=== PATIENT | male | born 2000 | race Two or more races ===

== ENCOUNTER → 2022-01-09 11:14 | Outpatient (BNVA) | payer OTHER, SELFPAY | PROVIDERS: Visit Provider Nurse Practitioner Family | DX: G43.109 Migraine with aura, not intractable, without status migrainosus (principal); R11.2 Nausea with vomiting, unspecified | CPT/HCPCS: 99202 ==

== ENCOUNTER → 2022-04-10 13:57 | Outpatient (BNVA) | payer OTHER, SELFPAY | PROVIDERS: Visit Provider Nurse Practitioner Family | DX: G43.109 Migraine with aura, not intractable, without status migrainosus (principal); R11.2 Nausea with vomiting, unspecified | CPT/HCPCS: 99212 ==

== ENCOUNTER 2023-01-17 08:25 | Outpatient (AMB) | payer OTHER, SELFPAY ==
--- NOTE | 2023-01-17 08:16 | MHC.OFFVIS ---
Intake Vital Signs 01/17/23 08:21 Weight 150 lb 2 oz BP 102/70 Blood Pressure Location Rt brachial Position Sitting Pulse 72 Pulse Source Pulse Oximeter Pulse Oximetry (%) 97 Oxygen Delivery Method Room Air Intake Visit Reasons: 4m follow up-Confirmed Intake Note: F/U migraines Gyroscope Technician Required: No Allergies No Known Allergies Allergy (Verified 01/17/23 08:19) Medication List - Last Reconciled 01/17/23 by SERA Morris fluticasone propionate 50 mcg/actuation 1 spray intranasal BID magnesium oxide 400 mg PO BEDTIME 30 days metoclopramide HCl 10 mg PO QID naproxen 500 mg PO Q12H PRN 30 days ondansetron 4 mg PO QID PRN 30 days riboflavin (vitamin B2) 400 mg PO DAILY 30 days rizatriptan 5 - 10 mg (0.5 - 1 x 10 mg) PO Q2H PRN 21 days HPI HPI Comments History of Present Illness Details 22-yr-old male presents for f/u visit. Pt denies any significant interval medical changes. Pt reports that 2 months ago, he had an ER eval for a severe migraine attack. He notes he had had a mild migraine for 3-4 before , which has was treating with Tylenol, and then on the 4th-or5th day, the migraine became severe w/ repeated N/V. He went to the ER, was given a migraine cocktail. He notes that he had lost his Rizatriptan, so was not able to take it at that time. He has had 1 migraine attack a/w aura and N/V in the past month- sometimes needs to miss/leave work. He has not been taking his Mag and B2- ran out He is still out of his Rizatriptan- which is usually effective w/o side effects. [facility] Medical History JASS (iron deficiency anemia) Pectus excavatum Surgical History History of testicular surgery Family History Mother Obesity Migraine Hepatitis C Psoriasis Family/Other No problems noted. Father High blood pressure Social History (Updated 01/17/23 @ 08:21 by Carla Galvez CMA) Alcohol intake: never Patient Tobacco Use Status: Never used Tobacco Review of Systems Const All systems reviewed & are unremarkable except as noted in HPI and below Physical Exam Vital Signs: Last Vital Signs Pulse 72 01/17/23 08:21 BP 102/70 01/17/23 08:21 Pulse Ox 97 01/17/23 08:21 Oxygen Delivery Method Room Air 01/17/23 08:21 Const General: cooperative and no acute distress Orientation/consciousness: patient oriented x3 HEENT Head: Yes normocephalic Resp Effort & Inspection: normal respiratory effort and able to speak in complete sentences Neuro General: patient oriented x3, gait normal and CN's II-XI intact bilaterally Cognition (Neuro): normal cognition Motor exam (neuro): 5/5 motor strength present throughout Psych Appearance: grossly normal Mental Status: mental status grossly normal Speech and movement: Normal speech and movement present Affect: normal affect Attitude: cooperative Thought process: Normal thought process present Thought content: Normal thought content present Insight: Good insight present (Psych) Judgement: Good judgement present (Psych) Assessment & Plan Assessment & Plan (1) Migraine with aura: Code(s): G43.109 - Migraine with aura, not intractable, without status migrainosus (2) Nausea and vomiting: Code(s): R11.2 - Nausea with vomiting, unspecified Plan For acute headache treatment: Continue Rizatriptan 5-10mg at onset of migraine- may repeat in 2hrs. May adjunct with Naproxen 500mg po q 12 hrs prn. Ondansetron 4mg q 6 hrs prn N/V Hold Reglan order- was given by the ER. Previous acute migraine trials: Sumatriptan- caused chest heaviness. ? For headache prevention treatment: Riboflavin 400mg qam Magnesium 400mg qhs. Medications: Refilled magnesium oxide may hold for loose stools 400 mg PO BEDTIME 30 tabs 6RF 30 days ondansetron 4 mg PO QID PRN 20 tabs 2RF nausea and vomiting 30 days riboflavin (vitamin B2) 400 mg PO DAILY 30 tabs 6RF 30 days rizatriptan max 2 tabs per day or 4 tabs per week 5 - 10 mg (0.5 - 1 x 10 mg) PO Q2H PRN 12 tabs 3RF migraine headache 21 days naproxen 500 mg PO Q12H PRN 30 tabs 3RF migraine headache 30 days Coding Level of Care Code Est Pt Level 4 (64367) Diagnoses Migraine with aura G43.109 Nausea and vomiting R11.2
[2023-01-17 08:21] VITALS: BP 102/70; PULSE 72; O2SAT 97
== END 2023-01-17 08:53 | disposition home or self-care (01) ==
LOC: HO.HSMS 08:25
PROVIDERS: Visit Provider Nurse Practitioner Family
DX: G43.109 Migraine with aura, not intractable, without status migrainosus (principal); R11.2 Nausea with vomiting, unspecified
CPT/HCPCS: 99214

== ENCOUNTER → 2023-01-17 08:25 | Outpatient (BNVA) | payer OTHER, SELFPAY | PROVIDERS: Visit Provider Nurse Practitioner Family | DX: G43.109 Migraine with aura, not intractable, without status migrainosus (principal); R11.2 Nausea with vomiting, unspecified | CPT/HCPCS: 99212 ==

== ENCOUNTER 2023-09-22 09:17 | Outpatient (REF) | payer OTHER, SELFPAY ==
[2023-09-22 11:41] LABS: MANUAL DIFF FLAG NO
[2023-09-22 11:56] LABS: Basophils Percent Auto 0.5 % (0-2); Eosinophils Absolute Auto 0.2 X10*3/uL (0.0-0.4); Eosinophils Percent Auto 2.9 % (0-4); Hematocrit 42.7 % (42.0-52.0); Hemoglobin 14.8 g/dl (14.0-18.0); Imm Gran Abs Auto 0.03 X10*3/uL (0.00-0.03); Imm Gran Pct Auto 0.5 % (0.0-0.4); Lymphocytes Absolute Auto 1.8 X10*3/uL (1.2-4.9); Lymphocytes Percent Auto 31.2 % (20-40); Mean Corpuscular HGB Conc 34.7 g/dl (31.0-36.0); Mean Corpuscular Hemoglobin 29.5 pg (27.0-33.0); Mean Corpuscular Volume 85.2 fL (80.0-98.0); Mean Platelet Volume 10.5 fL (9.4-12.4); Monocytes Absolute Auto 0.5 X10*3/uL (0.1-1.2); Monocytes Percent Auto 8.3 % (2-11); Neutrophils Absolute Auto 3.3 x10*3/uL (2.0-8.3); Neutrophils Percent Auto 56.6 % (45-73); Platelet Count 235 X10*3/uL (160-400); Red Blood Count 5.01 X10*6/uL (4.60-5.80); Red Cell Distribution Width 11.9 % (11.0-16.0); White Blood Count 5.8 X10*3/uL (4.8-10.8)
[2023-09-22 12:07] LABS: Estimated Average Glucose 94 mg/dL; Hemoglobin A1c % 4.9 % (<6.0)
[2023-09-22 12:21] LABS: Anion Gap 11 (12-20); Blood Urea Nitrogen 10 mg/dL (9-16); Calcium 9.1 mg/dL (8.4-10.2); Carbon Dioxide 26 mmol/L (22-29); Chloride 107 mmol/L (96-108); Estimated Glomerular Filt Rate > 60; Glucose Random 86 mg/dL (60-115); Lactate Dehydrogenase 265 U/L (118-273); Potassium 3.9 mmol/L (3.3-5.1); Sodium 140 mmol/L (135-145)
[2023-09-22 12:37] LABS: Rheumatoid Factor < 13.0 IU/mL (<15.0)
[2023-09-22 12:54] LABS: Erythrocyte Sedimentation Rate 3 MM/HR (0-15)
[2023-09-22 12:58] LABS: Folate 7.8 ng/mL (> or = 4.0); Vitamin B12 323 pg/mL (200-900)
[2023-10-02 12:19] LABS: Anti Nuclear Antibody Screen NEGATIVE (NEGATIVE)
== END 2023-09-22 09:18 | disposition home or self-care (01) ==
LOC: HO.HMGCLDS 09:17
PROVIDERS: Visit Provider Nurse Practitioner Family
DX: D72.829 Elevated white blood cell count, unspecified (principal); R51.9 Headache, unspecified; R41.82 Altered mental status, unspecified
CPT/HCPCS: 36415; 80048; 82607; 82746; 83036; 83615; 85025; 85652; 86038; 86431

== ENCOUNTER 2023-10-28 13:08 | Outpatient (REF) | payer OTHER, SELFPAY ==
--- NOTE | 2023-10-28 13:12 | EEG_ITS ---
FINDINGS: The waking background activity consists of a 9 hertz posterior alpha frequency that is seen symmetrically and attenuates well with eye opening while low voltage fast frequencies predominate anteriorly. Photic stimulation and hyperventilation are without activation. No focal, lateralizing, or paroxysmal discharges are seen. IMPRESSION: This waking EEG is within normal limits. MD DAVID Rodríguez/KERRY / [id number]
== END 2023-10-28 13:09 | disposition home or self-care (01) ==
LOC: HO.NEURO 13:08
PROVIDERS: Visit Provider Nurse Practitioner Family
DX: G43.109 Migraine with aura, not intractable, without status migrainosus (principal); R11.2 Nausea with vomiting, unspecified; R41.82 Altered mental status, unspecified
CPT/HCPCS: 95816

== ENCOUNTER 2023-11-10 14:59 | Outpatient (REF) | payer OTHER, SELFPAY ==
--- NOTE | ~2023-11-10 | MR_ITS ---
EXAMINATION: MR BRAIN WITHOUT AND WITH CONTRAST CLINICAL INFORMATION: Altered mental status. COMPARISON: None available. TECHNIQUE: MRI of the brain was obtained using routine sequences without and following the administration of 7 mL of Gadavist intravenous contrast. FINDINGS: No focal restricted diffusion is demonstrated to suggest acute or subacute cerebral ischemia. No evidence of acute or chronic hemorrhagic products on heme-sensitive imaging. Few nonspecific, nonenhancing T2 FLAIR hyperintensities in the deep white matter of the bilateral frontal lobes. No additional parenchymal signal abnormalities. The ventricles are normal in morphology and size. No abnormal mass effect. No midline shift. Normal appearance of the pituitary gland. Normal positioning of the cerebellar tonsils. Normal arterial and venous vascular flow voids are present. No abnormal contrast enhancement. Normal, homogeneous marrow signal. Mild mucosal thickening of the paranasal sinuses. Mild rightward nasal septal deviation. No signal abnormalities within the mastoids. MR/MR head/brain wo/w con IMPRESSION: 1. No acute intracranial abnormalities. No abnormal intracranial enhancement. 2. Minimal nonspecific white matter changes.
[2023-11-10] MEDS: gadobutroL 7.5 ML VIAL IVPUSH (15:55)
== END 2023-11-10 15:00 | disposition home or self-care (01) ==
LOC: HO.MRI 14:59
PROVIDERS: Visit Provider Nurse Practitioner Family
DX: R41.82 Altered mental status, unspecified (principal); R51.9 Headache, unspecified; R11.2 Nausea with vomiting, unspecified
CPT/HCPCS: 70553; A9585

== ENCOUNTER 2024-01-30 14:07 | Outpatient (AMB) | payer OTHER, SELFPAY ==
--- NOTE | 2024-01-30 14:14 | MHC.OFFVIS ---
Vital Signs 01/30/24 14:16 Height 5 ft 6 in Weight 162 lb BMI 26.1 BP 118/82 Blood Pressure Location Rt brachial Position Sitting Intake Visit Reasons: f/u for Migraines Intake Note: Patient presents for migraines. Patient still getting headaches and a lot of intensity. Allergies No Known Allergies Allergy (Verified 01/30/24 14:19) HPI Comments Details: 23 y/o male f/u for h/o AMS/ Migraine with Aura and Vomiting. Pt is accompanied by his mother. Since the last visit, pt notified the office that he had a [facility] ER eval for an episode of severe migraine w/ his typical aura w/ pronounced nausea and vomiting which culminated in pt losing consciousness. His roommate brought him to the ER, while in the ER, pt continued to ahve headcahe, nausea, jawning, , jaw opening, eyes rolling back- described per ER note as pt will clench eyes close or roll eyes back when any attempts made (volitional) . Work-up was unremarkable. WBC- 13- slightly elevated Lactate 4 Labs otherwise WNL. Tox screen negative. CT Angio Neck Hyperacute Stroke, CT Angio Head Hyperacute Stroke- negative. Headt CT w/o- normal. Migraine cocktail, including Haldol, alleviated his s/s of jaw opeing, yawning and eyes rolling back. Since then, pt was advsied to undergo Brain MRI and EEG. 11/10/23, MR/MR head/brain wo/w con IMPRESSION: 1. No acute intracranial abnormalities. No abnormal intracranial enhancement. 2. Few nonspecific, nonenhancing T2 FLAIR hyperintensities in the deep white matter of the bilateral frontal lobes 10/28/23- Baseline EEG- normal. He has had at leats 2-3 migraine attacks per month since. When severe, migraine is a/w visual aura and marked vomitting. He denies the use of drugs, alcohol, marijuana, and or edibles. Mom denies family history of seizures, and he denies history of seizures. He has been very anxious with a new job, as an asst hall manager with more responsibilities and is diagnosed with PTSD. He does endorse panic attacks and poor mood. He stays up in front of [employer], hedy until 3AM, endorses poor diet and caffeine use. MRI was completed showed white matter changes, EEG no activity of seizure activity. Baseline headache characteristics: Prodrome symptoms: Increased fatigue, mild photophobia Aura: Just before the headache, he has a visual aura- where he sees stripes running through everything, which lasts about 15 minutes. Headache phase: Modertae to severe bilateral retrorbital throbbing pain a/w photophobia, phonophobia, nausea, vomiting (if severe), bilateral arm numbness, general weakness, runny, activity intolerance (but sometimes some restlessness if cannot fall asleep). Postdrome: Residual fatigue. [facility] Medical History JASS (iron deficiency anemia) Pectus excavatum Surgical History History of testicular surgery Family History Mother Obesity Migraine Hepatitis C Psoriasis Family/Other No problems noted. Father High blood pressure Social History Alcohol intake: never Patient Tobacco Use Status: Never used Tobacco Review of Systems Const All systems reviewed & are unremarkable except as noted in HPI and below Musc Reports tingling (bilaterally upper extremities into the arm. ) Neuro Reports as per HPI and Reports tingling (bilaterally upper extremities into the arm. ) Physical Exam Vital Signs: Last Vital Signs BP 118/82 01/30/24 14:16 BMI result Body Mass Index 26.1 Const General: cooperative, comfortable and no acute distress Nutritional Appearance: average body habitus Orientation/consciousness: patient oriented x3 HEENT Face and sinus: Yes face symmetric Mouth: tongue normal Eyes Pupils: Equal, round and reactive pupils present Resp Effort & Inspection: normal respiratory effort and able to speak in complete sentences Neuro General: patient oriented x3 and moves all extremities Cranial nerves: Yes CN's II-XII intact bilaterally, Yes Facial sensation intact/muscles of mastication intact, Yes Equal, round and reactive pupils present, Yes Midline tongue present, Yes Ability to bilaterally rotate head present and Yes Ability to bilaterally elevate shoulders present Gait exam (Neuro): Normal gait present Motor exam (neuro): 5/5 motor strength present throughout Deep tendon reflexes (DTR's): Right triceps reflex intensity grade: 2+, Left triceps reflex intensity grade: 2+, Rt Biceps (C5, C6): 2+, Left biceps reflex intensity grade: 2+, Right brachioradialis reflex intensity grade: 2+, Left brachioradialis reflex intensity grade: 2+, Right patellar reflex intensity grade: 2+ and Left patellar reflex intensity grade: 2+ Coordination: [id number] test normal Romberg Test: Negative Psych Appearance: grossly normal Mental Status: mental status grossly normal Speech and movement: Normal speech and movement present Affect: normal affect Attitude: cooperative Assessment & Plan Assessment & Plan (1) Migraine with aura: Code(s): G43.109 - Migraine with aura, not intractable, without status migrainosus Category: Medical Qualifiers: Intractability: intractable Status migrainosus presence: without status migrainosus Qualified Code(s): G43.119 - Migraine with aura, intractable, without status migrainosus (2) Nausea and vomiting: Code(s): R11.2 - Nausea with vomiting, unspecified Category: Medical (3) Altered mental status: Comment: 09/17/23- isolated episode of AMS preceded by severe migraine w/ aura and marked vomiting w/ unremarkable work-up and negative Tox screen,- DDx most likely d/t dehydration and physical stress, less likely epileptic etiology. Code(s): R41.82 - Altered mental status, unspecified Category: Medical Plan Reviewed work-up: Head CT w/o, Head/Neck CTA, Brain MRI w/wo- unremarkable. Baseline EEG- normal. Pt advised to undergo f/u sleep/wake EEG to ensure no epileptic susceptibility. For overall migraine management: Sleep hygiene: Avoid tablets at bedtime, regular bedtime is emphasized, peppermint oil use for stress, and managing mood. Patient Education of medications for Migraine prevention. Use of a good pair of blue light cancelling glasses is highly recommended. Limit Screen time, use LED cancelling screens on all tablets and monitors. For acute headache treatment: Continue Rizatriptan 5-10mg at onset of moderate migraine- may repeat in 2hrs. May adjunct with Naproxen 500mg po q 12 hrs prn. Ondansetron 4mg q 6 hrs prn N/V Metoclopramide- 10mgPO 4 times per day prn for nausea and migraine pain. Sumatriptan 6mg sc at onset of SEVERE migraine, MR in 1 hr (max 12mg per day). Reviewed common side effects of triptans, which may come quicker w/ sc formulation- include but are not limited to nausea, fatigue, chest tightness/tingling (usually passes within a few minutes), medication overuse headaches. Previous acute migraine trials: Sumatriptan oral- caused chest heaviness- clarified not allergic response. ? For headache prevention treatment: Riboflavin 400mg qam Magnesium 400mg qhs. Start Amitriptyline 10mg daily at bedtime. Potential side effects include but are not limited to fatigue, cardiac arrhythmias, mood changes. Will follow-up upon review of above and patient to follow-up in clinic in 3-4 months or sooner prn. Pt seen by Tyshawn MARINELLI in coordination w/ myself SERA Morris-, I have updated the above document and plan, and am in agreement with the above documentation and plan. Orders: Orders EEG awake and asleep 01/30/24 R11.2 - Nausea with vomiting, unspecified, G43.109 - Migraine with aura, not intractable, without status migrainosus Medications: New amitriptyline 10 mg PO BEDTIME 30 tabs 3RF G43.109 - Migraine with aura, not intractable, without status migrainosus, R51.9 - Headache, unspecified Refilled ondansetron 4 mg PO QID PRN 20 tabs 2RF nausea and vomiting 30 days magnesium oxide may hold for loose stools 400 mg PO BEDTIME 30 tabs 6RF 30 days riboflavin (vitamin B2) 400 mg PO DAILY 30 tabs 6RF 30 days rizatriptan max 2 tabs per day or 4 tabs per week 5 - 10 mg (0.5 - 1 x 10 mg) PO Q2H PRN 12 tabs 3RF migraine headache 21 days Coding Level of Care Code Est Pt Level 4 (90495) Complex EM visit Add On G2211 Diagnoses Intractable migraine with aura without status migrainosus G43.119 Intractability: intractable Status migrainosus presence: without status migrainosus Nausea and vomiting R11.2 Altered mental status R41.82
[2024-01-30 14:16] VITALS: BP 118/82; BMI 26.1
== END 2024-01-30 16:08 | disposition home or self-care (01) ==
PROVIDERS: Visit Provider Nurse Practitioner Family
DX: G43.119 Migraine with aura, intractable, without status migrainosus (principal); R11.2 Nausea with vomiting, unspecified; R41.82 Altered mental status, unspecified
CPT/HCPCS: 99214; G2211

== ENCOUNTER → 2024-01-30 14:07 | Outpatient (BNVA) | payer OTHER, SELFPAY | PROVIDERS: Visit Provider Nurse Practitioner Family | DX: G43.119 Migraine with aura, intractable, without status migrainosus (principal); R11.2 Nausea with vomiting, unspecified; R41.82 Altered mental status, unspecified | CPT/HCPCS: 99212 ==

== ENCOUNTER 2024-06-17 07:45 | Outpatient (AMB) | payer OTHER, SELFPAY ==
--- OUTSIDE RECORDS SUMMARY | 2024-06-17 07:48 | XMS_ITS | Data Portability ---
Author Organization [facility], [address] Address [address] [place] [address] Assessment No assessment recorded. Plan of Treatment Reminders Order Date Submit Date Provider Last Modified By Organization Details Last Modified Time Details Appointments None recorded. Lab rapid flu (A+B) 2021 [facility], [address] [place], [address], 14:01:02 rapid SARS CoV 2 Ag, QL IA, respiratory specimen 2021 _[facility], [address] [place], [address], 14:01:02 Referral None recorded. Procedures None recorded. Surgeries None recorded. Imaging None recorded. Medication Orders benzonatate 100 mg capsule 2021 [facility] #[id number], [address] [place], [address], 14:12:48 Patient TargetsNo targets recorded. Patient Instructions Encounter Date Encounter Id Patient Instructions Last Modified By Organization Details Last Modified Time 03/06/2022 [id number] cough: care instructions Not available 03/06/2022 14:01:02 upper respirator y infection (cold): care instructions Not available 03/06/2022 14:11:31 Your symptoms ar e most likely viral, recommend rest, fluids, humidifier, and sometimes cough suppressants and/or nasal decongestants to help reduce symptoms until your body's immune system kills the virus and the both self-recovers. If symptoms worsen, return to clinic. You should follow-up with [facility] or your PCP in 2-3 days, or at any time if your condition does not improve or worsens. Any acute change should prompt a visit to the nearest Emergency Department. Not available 03/06/2022 14:09:51 Reason for Referral None Reported. Results Created Date Observation Date Name Description Value Unit Range Abnormal Flag Note LastModifiedBy Organization Detail LastModifiedTime 03/06/20 22 03/06/2022 rapid SARS CoV 2 Ag, QL IA, respi rator y speci men Unknown Analyte Normal =Negat stephanie Not Available [address] [place], [place] [address] [address] [place] [address], [phone], 03/06/2022 13:11:22 03/06/20 22 03/06/2022 rapid SARS CoV 2 Ag, QL IA, respi rator y speci men Unknown Analyte negati ve Not Available [address] [place], [place] [address], [address], 03/06/2022 13:11:22 03/06/20 22 03/06/2022 rapid flu (A+B) Unknown Analyte Normal = Negati ve Not Available [address] [place] [address], [phone], 03/06/2022 13:11:13 03/06/20 22 03/06/2022 rapid flu (A+B) Unknown Analyte negati ve Not Available [address] [place], [place] [address], [address], 03/06/2022 13:11:13 03/06/20 22 03/06/2022 rapid flu (A+B) Unknown Analyte Normal = Negati ve Not Available [address] [place] [address], [address], 03/06/2022 13:11:13 03/06/20 22 03/06/2022 rapid flu (A+B) Unknown Analyte negati ve Not Available [address] [place], [address], 03/06/2022 13:11:13 Result Notes None recorded. Problems Name Problem SNOMED Code Status Onset Date Resolution Date Notes Provider Name and Address Organization Details Recorded Time Migraine [id number] Completed 03/06/2022 CHARLES sanchez PA - [facility] 13:10:12 Problem Notes None recorded. Procedures Surgical History Date Name Laterality Status Provider Name and Address Organization Details Recorded Time surgical reduction of torsion of testis completed CHARLES FUENTES PA - [facility] 03/06/2022 13:11:02 Imaging Results None recorded. Procedure Notes None recorded. Medical Equipment None Reported. Allergies No known drug allergies Medications Name Sig Start Date Stop Date Status Note LastModified by Organization Details LastModified Time benzonatate 100 mg capsule Take 1 capsule 3 times a day by oral route as needed. active Not Available Not Available Not Avai lable sumatriptan active Not Available Not A vailable Not Available Vitals Date Recorded Body height Body mass index (BMI) Body weight Oxygen saturation Oxygen saturation in Arterial blood by Pulse oximetry Heart rate Body temperature Respiratory rate Systolic blood pressure Diastolic blood pressure Provider Name and Address Organization Details Last Updated DateTime 167.64 cm 8.1 kg/m2 16312.6 2 g 99 % 99 % 87 /min 98.3 [degF] 20 /min 113 mm[Hg] 77 mm[Hg] CHARLES FUENTES PA - [facility] 13:08:53 Social History Question Answer Notes LastModified by Organizat ion Details LastModified Time Tobacco Smoking Status Never Smoker CHARLES sanchez, PA - [facility] 03/06/2022 13:10:30 What Is Your Level Of Alcohol Consumption? None Information not available 03/06/2022 Have You Had Direct Contact, Or Contact During Intimacy, With Monkeypox Rash, Scabs, Or Body Fluids From A Person With Monkeypox? No Information not available 03/06/2022 Do You Use Any Illicit Or Recreational Drugs? No Information not available 03/06/2022 Have You Recently Traveled Abroad? No Information not available 03/06/2022 Sex: Unknown Functional Status None recorded. Mental Status None recorded. Family History Nothing Reported. Medical History No medical history recorded. Immunizations Vaccine Type Date Status Note Provider Nam e and Address Organization Details Recorded Time MMR 2 completed CHARLES BONESIO null, PA - [facility] 03/06/2022 13:09:14 pneumococcal conjugate PCV 7 1 completed CHARLES BONESIO null, PA - [facility] 03/06/2022 13:09:14 DTaP 1 completed CHARLES BONESIO null, PA - [facility] 03/06/2022 13:09:14 COVID-19, mRNA, LNP-S, PF, 30 mcg/0.3 mL dose 1 completed CHARLES BONESIO null, PA - [facility] 03/06/2022 13:09:14 Influenza, split virus, trivalent, preservative 0 completed CHARLES BONESIO null, PA - [facility] 03/06/2022 13:09:14 Influenza, split virus, trivalent, preservative 1 completed CHARLES BONESIO null, PA - [facility] 03/06/2022 13:09:14 Hep B, adolescent or pediatric 1 completed CHARLES BONESIO null, PA - [facility] 03/06/2022 13:09:14 [id number] 1 completed CHARLES BONESIO null, PA - [facility] 03/06/2022 13:09:14 Hep A, ped/adol, 2 dose 7 completed CHARLES BONESIO null, PA - [facility] 03/06/2022 13:09:14 pneumococcal conjugate PCV 7 1 completed CHARLES BONESIO null, PA - [facility] 03/06/2022 13:09:14 Hib (HbOC) 1 completed CHARLES BONESIO null, PA - [facility] 03/06/2022 13:09:15 IPV 1 completed CHARLES BONESIO null, PA - [facility] 03/06/2022 13:09:15 influenza, split (incl. purified surface antigen) 3 completed CHARLES BONESIO null, PA - [facility] 03/06/2022 13:09:15 DTaP 2 completed CHARLES BONESIO null, PA - [facility] 03/06/2022 13:09:15 Influenza, injectable,quadriv alent, preservative free, pediatric 7 completed CHARLES BONESIO null, PA - [facility] 03/06/2022 13:09:15 HPV, quadrivalent 4 completed CHARLES BONESIO null, PA - [facility] 03/06/2022 13:09:15 Hep B, adolescent or pediatric 1 completed CHARLES BONESIO null, PA - [facility] 03/06/2022 13:09:15 [id number] 2 completed CHARLES BONESIO null, PA - [facility] 03/06/2022 13:09:15 Hib (HbOC) 2 completed CHARLES BONESIO null, PA - [facility] 03/06/2022 13:09:15 Hib (HbOC) 1 completed CHARLES BONESIO null, PA - [facility] 03/06/2022 13:09:15 varicella 8 completed CHARLES BONESIO null, PA - [facility] 03/06/2022 13:09:15 IPV 1 completed CHARLES BONESIO null, PA - [facility] 03/06/2022 13:09:15 COVID-19, mRNA, LNP-S, PF, 30 mcg/0.3 mL dose 1 completed CHARLES BONESIO null, PA - [facility] 03/06/2022 13:09:15 varicella 2 completed CHARLES BONESIO null, PA - [facility] 03/06/2022 13:09:15 Tdap 3 completed CHARLES BONESIO null, PA - [facility] 03/06/2022 13:09:15 Influenza, injectable,quadriv alent, preservative free, pediatric 7 completed CHARLES BONESIO null, PA - [facility] 03/06/2022 13:09:15 Influenza, split virus, quadrivalent, PF 6 completed CHARLES BONESIO null, PA - [facility] 03/06/2022 13:09:15 pneumococcal conjugate PCV 7 1 completed CHARLES BONESIO null, PA - [facility] 03/06/2022 13:09:15 IPV 7 completed CHARLES BONESIO null, PA - [facility] 03/06/2022 13:09:15 Hep B, adolescent or pediatric 1 completed CHARLES BONESIO null, PA - [facility] 03/06/2022 13:09:15 MMR 5 completed CHARLES BONESIO null, PA - [facility] 03/06/2022 13:09:15 HPV, quadrivalent 1 completed CHARLES BONESIO null, PA - [facility] 03/06/2022 13:09:15 meningococcal MCV4P 7 completed CHARLES BONESIO null, PA - [facility] 03/06/2022 13:09:15 YNoP-Ksp-HSZ 1 completed CHARLES BONESIO null, PA - [facility] 03/06/2022 13:09:15 GWfX-Ija-YDV 1 completed CHARLES BONESIO null, PA - [facility] 03/06/2022 13:09:15 meningococcal MCV4P 2 completed CHARLES BONESIO null, PA - [facility] 03/06/2022 13:09:15 HPV, quadrivalent 2 completed CHARLES BONESIO null, PA - [facility] 03/06/2022 13:09:15 Influenza, split virus, quadrivalent, PF 9 completed CHARLES BONESIO null, PA - [facility] 03/06/2022 13:09:15 Influenza, MDCK, quadrivalent, PF 0 completed CHARLES BONESIO null, PA - [facility] 03/06/2022 13:09:15 DTaP 5 completed CHARLES BONESIO null, PA - [facility] 03/06/2022 13:09:15 IPV 5 completed CHARLES FUENTES null, PA - [facility] 03/06/2022 13:09:15 Past Encounters Encounter ID Performer Location Encounter Start Date Encounter Closed Date Diagnosis/Indication Diagnosis SNOMED-CT Code Diagnosis ICD10 Code Diagnosis Note [id number] [address] [place] [address] 01/14/2021 16:00:31 01/14/2021 18:25:30 [id number] [address] [place] [address] 09/24/2020 11:50:13 09/24/2020 12:29:21 [id number] [address] [place] [address] 02/01/2020 15:13:47 02/01/2020 18:16:05 [id number] [place] [address] [address] 03/06/2022 11:14:21 03/06/2022 14:14:02 Cough 37431291 R05.9 Health Concerns Section Related Observation LastModified by Organization Detai ls LastModified Time None Recorded Concern Status LastModified by Organization Details LastModified Time None Recorded Advance Directives Directive None Recorded Payers Encounter Date Sequence Insurance Name Policy Number Policy Dupont Covered Member ID Dupont Member ID Guarantor Name 02/01/2020 1 [facility] [place] [place] ANTONIO Arias [id number] Tyler Arias 09/24/2020 1 [facility] [place] ANTONIO Arias [id number] Tyler Arias 01/14/2021 1 [facility] ([facility] ANTONIO Arias [id number] Tyler Arias 03/06/2022 1 [facility] [place] [place] ANTONIO Arias [id number] Tyler Arias Notes Date Note Type Note Provider Name and Address Organization Details Recorded Time 03/06/2022 text/html CoughReported bypatient.Quality:d ry Severity:mild Duration:intermitte nt Context:family members ill with similar symptoms Associated Symptoms:no fever; no chills; no chest pain; no heartburn; no nausea; no vomiting; no edema; no wheezing Pt c/o cough and congestion x 4 days. Denies fever or sob. Possible covid/flu/RSV exposure. Cornelia Pope MD [address] [place], [address], PA - [facility] 03/06/2022 14:12:55
--- OUTSIDE RECORDS SUMMARY | 2024-06-17 07:48 | XMS_ITS | Clinical Summary ---
Author Organization [address] Building Address [address] [place] [address] [place] [address] Phone Care Team Providers Care Diamond Picker Name Role Phone FloresKathy henderson Primary Care Provider [phone] Surgical History Surgery Date Site/Laterality Comments OTHER SURGICAL HISTORY 12/15/2014 PROCEDURE: HISTORICAL ORCHIOPEXY; COMMENT: scrotal exploration with orchiopexies Medical History Medical History Date Comments Abnormal vision screen 07/28/2017 DX:Abnorm al vision screen; COMMENT: 05/13/12 OS: 20/70, OD: 20/100 both uncorrected. 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 Has mentor through [employer] program. Mobitz type 1 second degree atrioventricular block 07/28/2017 DX:Mobitz type 1 second degr ee atrioventricular block Onychomycosis of toenail 07/28/2017 DX:Onyc homycosis of toenail; COMMENT: 08/27/13 clotrimazole cream Positive depression screening 07/28/2017 DX :Positive depression screening; COMMENT: 05/27/16 Denies SI/HI. Not interested in counseling. Mother has Crisis contact/ number. Mom does not feel referral to therapist is necessary. Follow up if symptoms change/worsen + Screen 11/24/14referral to [facility] for therapy- eval & treat. + screen 02/05/10 - referral to therapist Scrotal pain 07/28/2017 DX:Scrotal pain; COMMENT: 08/27/13 intermittent. No finding on exam. US 08/31/13 normal: insignificant extratesticular abnormalities. Repeat US 07/21/14 : Very small hydrocele R, several sub centimeter scrotal calcifications again noted. General Surgery consult Family History Medical History Relation Name Comments Hypertension Father Migraines Mother Obesity Mother Other: Hepatitis C Mother history o f IVDU Other: psoriasis Mother Colon cancer Neg Hx Relation Name Status Comments Father Alive Mother Alive Sister Mai Montes Alive Social History Tobacco Use Types Packs/Day Years Used Date Smoking Tobacco: Never Smokeless Tobacco: Never Alcohol Use Standard Drinks/Week Comments Not Currently 0 (1 standard drink = 0.6 oz pur e alcohol) Sex and Gender Information Value Date Recorded Sex Assigned at Not on file Legal Sex Male 9:51 AM EST Gender Identity Not on file Sexual Orientation Not on file Obstetrics History Last Filed Vital Signs Vital Sign Reading Time Taken Comments Blood Pressure 105/76 11/05/2023 8:49 AM EDT Pulse 71 11/05/2023 8:49 AM EDT Temperature - - Respiratory Rate - - Oxygen Saturation - - Inhaled Oxygen Concentration - - Weight 72.6 kg (160 lb) 11/05/2023 8:49 AM EDT Height 167.6 cm (5' 6 ) 11/05/2023 8:49 AM EDT Body Mass Index 25.82 11/05/2023 8:49 AM EDT Plan of Treatment Upcoming Encounters Date Type Department Care Team (Late st Contact Info) Description 01/13/2025 3:30 PM EDT Office Visit Internal Medicine - [facility] [address] [place] [address] Kathy Castro, [address] [place] [address] Health Maintenance Due Date Last Done Comments Hepatitis A Vaccines (2 of 2 - 2-dose series) 06/30/2017 12/30/2016 Depression Screening 03/02/2022 HIV Screening 03/02/2022 Hepatitis C Screening 03/02/2022 Social Influencers of Health Screening 03/02/2022 COVID-19 Vaccine ( season) 2023 Influenza Vaccine (#1) 2023 3, 01/26/2020, 02/10/2019, Additional history exists Cholesterol Screening (Lipid Panel) 11/04/2028 11/05/2023 DTaP,Tdap,and Td Vaccines (8 - Td or Tdap) 11/04/2033 11/05/2023, 05/13/2012, 05/21/2004, Additional history exists Pneumococcal Vaccine: Pediatrics (0 to 5 Years) and At-Risk Patients (6 to 64 Years) Aged Out 2000, 2000, 2000 No longer eligible based on patient's age to complete this topic Hepatitis B Vaccines Completed 01/14/2001, 2000, 2000 HIB Vaccines Completed 01/13/2002, 06/2000, 2000, Additional history exists MMR Vaccines Completed 05/21/2004, 01/13/2002 Varicella Vaccines Completed 06/03/2007, 04/16/2001 HPV Vaccines Completed 08/27/2013, 03/25, 02/12/2011 Meningococcal ACWY Vaccine Completed 05/27/2016, IPV Vaccines Completed 12/30/2016, 04/25, 01/13/2002, Additional history exists Meningococcal B Vacine Aged Out No lo nger eligible based on patient's age to complete this topic RSV Immunization Patients Under 20 months Aged Out No longer eligible based on patient's age to complete this topic Insurance [facility] Care Teams Diamond Picker Relationship Specialty Start Date End Date Kathy Castro DO [address] [place] [phone] PCP - General Internal Medicine 05/28/24
--- NOTE | 2024-06-17 08:04 | A.OFFVIS_ITS ---
Vital Signs 06/17/24 08:05 Height 5 ft 6 in Weight 164 lb BMI 26.5 BP 120/72 Blood Pressure Location Rt brachial Position Sitting Pulse 66 Pulse Source Pulse Oximeter Pulse Oximetry (%) 97 Oxygen Delivery Method Room Air Intake Visit Reasons: Follow up Mental Health Program Specialist Required: No Accompanied by: Self / Same As Patient Allergies No Known Allergies Allergy (Verified 06/17/24 08:09) Medication List - Last Reconciled 06/17/24 by SERA Morris amitriptyline 10 mg PO BEDTIME fluticasone propionate 50 mcg/actuation 1 spray intranasal BID magnesium oxide 400 mg PO BEDTIME 30 days metoclopramide HCl 10 mg PO QID PRN 30 days naproxen 500 mg PO Q12H PRN 30 days ondansetron 4 mg PO QID PRN 30 days riboflavin (vitamin B2) 400 mg PO DAILY 30 days rizatriptan 5 - 10 mg (0.5 - 1 x 10 mg) PO Q2H PRN 21 days sumatriptan succinate 6 mg (0.5 mL) subcut ONCE PRN 28 days HPI Comments Details: 24 y/o male presents for follow-up for h/o AMS/ migraine with aura. Pt denies any interval medical history changes. Last week, he had small 3 small migraines back to back. His last more severe migraine was a few weeks ago- where he would called out of work if he had not already arrived at work. Denies interval migraine a/w altered mental status or seizure-like activity. He did have f/u sleep/wake EEG- unfortunately we do not have results yet. Using Rizatriptan prn, which is effective. Has not used sumatriptan prn- has been heistent that he might night do the injection correctly. Baseline headache characteristics: Prodrome symptoms: Increased fatigue, mild photophobia Aura: Just before the headache, he has a visual aura- where he sees stripes running through everything, which lasts about 15 minutes. Headache phase: Moderate to severe bilateral retrorbital throbbing pain a/w photophobia, phonophobia, nausea, vomiting (if severe), bilateral arm numbness, general weakness, runny, brain fog, activity intolerance (but sometimes some restlessness if cannot fall asleep). And once, pt had episode of AMS w/ convulsive symptoms. Postdrome: Residual fatigue. [facility] Medical History JASS (iron deficiency anemia) Pectus excavatum Surgical History History of testicular surgery Family History Mother Obesity Migraine Hepatitis C Psoriasis Family/Other No problems noted. Father High blood pressure Social History Alcohol intake: never Patient Tobacco Use Status: Never used Tobacco Physical Exam Vital Signs: Last Vital Signs Pulse 66 06/17/24 08:05 BP 120/72 06/17/24 08:05 Pulse Ox 97 06/17/24 08:05 Oxygen Delivery Method Room Air 06/17/24 08:05 BMI result Body Mass Index 26.5 Const General: cooperative, comfortable and no acute distress Nutritional Appearance: average body habitus Orientation/consciousness: patient oriented x3 HEENT Face and sinus: Yes face symmetric Mouth: tongue normal Eyes Pupils: Equal, round and reactive pupils present Resp Effort & Inspection: normal respiratory effort and able to speak in complete sentences Neuro General: patient oriented x3 and moves all extremities Cranial nerves: Yes CN's II-XII intact bilaterally, Yes Facial sensation intact /muscles of mastication intact, Yes Equal, round and reactive pupils present, Yes Midline tongue present, Yes Ability to bilaterally rotate head present and Yes Ability to bilaterally elevate shoulders present Gait exam (Neuro): Normal gait present Motor exam (neuro): 5/5 motor strength present throughout Psych Appearance: grossly normal Mental Status: mental status grossly normal Speech and movement: Normal speech and movement present Affect: normal affect Attitude: cooperative Assessment & Plan Assessment & Plan (1) Migraine with aura: Code(s): G43.109 - Migraine with aura, not intractable, without status migrainosus Category: Medical Qualifiers: Status migrainosus presence: without status migrainosus Intractability: not intractable Qualified Code(s): G43.109 - Migraine with aura, not intractable, without status migrainosus (2) Nausea and vomiting: Code(s): R11.2 - Nausea with vomiting, unspecified Category: Medical (3) Altered mental status: Comment: 09/17/23- isolated episode of AMS preceded by severe migraine w/ aura and marked vomiting w/ unremarkable work-up and negative Tox screen,- DDx most likely d/t dehydration and physical stress, less likely epileptic etiology. Code(s): R41.82 - Altered mental status, unspecified Category: Medical Plan For previous episode of AMS a/w severe migraine attack: Previous work-up: * Head CT w/o, Head/Neck CTA, Brain MRI w/wo- unremarkable. * Baseline EEG- normal. Interval work-up: * Sleep/wake EEG done at [facility]- results requested For overall migraine management: Sleep hygiene: Avoid tablets at bedtime, regular bedtime is emphasized, peppermint oil use for stress, and managing mood. Patient Education of medications for Migraine prevention. Use of a good pair of blue light cancelling glasses is highly recommended. Limit Screen time, use LED cancelling screens on all tablets and monitors. For acute headache treatment: Continue Rizatriptan 5-10mg at onset of moderate migraine- may repeat in 2hrs. May adjunct with Naproxen 500mg po q 12 hrs prn. Ondansetron 4mg q 6 hrs prn N/V Metoclopramide- 10mg PO 4 times per day prn for nausea and migraine pain. Sumatriptan 6mg sc at onset of SEVERE migraine, MR in 1 hr (max 12mg per day). Reviewed common side effects of triptans, which may come quicker w/ sc formulation- include but are not limited to nausea, fatigue, chest tightness/tingling (usually passes within a few minutes), medication overuse headaches. Advised to review sumatriptan injection instructions during a time when he does not have a migraine to ensure he understands proper use. Previous acute migraine trials: Sumatriptan oral- caused chest heaviness- clarified not allergic response. ? For headache prevention treatment: Riboflavin 400mg qam Magnesium 400mg qhs. Increase Amitriptyline from 10mg to 25mg daily at bedtime. Potential side effects include but are not limited to fatigue, cardiac arrhythmias, mood changes. Will follow-up upon review of above and patient to follow-up in clinic in 6 months or sooner prn. Will follow-up upon review of above and patient to follow-up in clinic in 6 months or sooner prn. Medications: New amitriptyline 25 mg PO BEDTIME 30 tabs 6RF 30 days Changed From magnesium oxide may hold for loose stools 400 mg PO BEDTIME 30 days 30 tabs 6RF To magnesium oxide may hold for loose stools 400 mg PO BEDTIME 90 tabs 3RF 90 days From riboflavin (vitamin B2) 400 mg PO DAILY 30 days 30 tabs 6RF To riboflavin (vitamin B2) 400 mg PO DAILY 90 tabs 3RF 90 days Refilled ondansetron 4 mg PO QID PRN 20 tabs 2RF nausea and vomiting 30 days metoclopramide HCl 10 mg PO QID PRN 30 tabs 1RF severe migraine attack 30 days rizatriptan max 2 tabs per day or 4 tabs per week 5 - 10 mg (0.5 - 1 x 10 mg) PO Q2H PRN 12 tabs 6RF migraine headache 21 days sumatriptan succinate may repeat x's 1 in 1 hour (max 12mg/day) 6 mg (0.5 mL) subcut ONCE PRN 4 mL 3RF severe migraine 28 days G43.109 - Migraine with aura, not intractable, without status migrainosus, R11.2 - Nausea with vomiting, unspecified Discontinued amitriptyline Discontinued Reason: Doctor's Order 10 mg PO BEDTIME 30 tabs 3RF G43.109 - Migraine with aura, not intractable, without status migrainosus, R51.9 - Headache, unspecified Coding Level of Care Code Est Pt Level 4 (56994) Diagnoses Migraine with aura and without status migrainosus, not intractable G43.109 Status migrainosus presence: without status migrainosus Intractability: not intractable Nausea and vomiting R11.2 Altered mental status R41.82
[2024-06-17 08:05] VITALS: BP 120/72; PULSE 66; O2SAT 97; BMI 26.5
== END 2024-06-17 08:59 | disposition home or self-care (01) ==
LOC: HO.HSMS 07:45
PROVIDERS: Visit Provider Nurse Practitioner Family
DX: G43.109 Migraine with aura, not intractable, without status migrainosus (principal); R11.2 Nausea with vomiting, unspecified; R41.82 Altered mental status, unspecified
CPT/HCPCS: 99214

== ENCOUNTER → 2024-06-17 07:45 | Outpatient (BNVA) | payer OTHER, SELFPAY | PROVIDERS: Visit Provider Nurse Practitioner Family | DX: G43.109 Migraine with aura, not intractable, without status migrainosus (principal); R11.2 Nausea with vomiting, unspecified; R41.82 Altered mental status, unspecified | CPT/HCPCS: 99212 ==